=== PATIENT | male | born 1995 | race Caucasian/White ===

== ENCOUNTER 2019-12-08 04:32 | Emergency (ER) | payer SELFPAY ==
[~2019-12-08] VITALS: Ht 182.9 cm; Wt 68.0 kg
[2019-12-08 04:41] VITALS: BP 131/85
== END 2019-12-08 05:48 | disposition home or self-care (01) ==
LOC: ED 05:30
DX: F51.04 Psychophysiologic insomnia (principal); F32.9 Major depressive disorder, single episode, unspecified
CPT/HCPCS: 99283